=== PATIENT | male | born 1960 | race Two or more races ===

== ENCOUNTER 2020-05-06 21:17 | Inpatient (IN) | payer OTHER ==
[~2020-05-06] VITALS: Ht 182.9 cm; Wt 92.6 kg
[2020-05-06] MEDS ORDERED: PROP80CA51 PO (21:27)
[2020-05-06] MEDS ORDERED: DILTIAZEM HCL 25 MG IV ONE (21:28)
--- NOTE | 2020-05-06 21:29 | NUR ---
PATIENT CAME TO ER BED 9 BIB RA FROM HOME C/O RAPID HEART RATE. PATIENT STATES THAT HE HAS HAD A SIMILAR SITUATION A COUPLE YEARS AGO AND FELT THE SAME SENSATION TONIGHT. PATIENT DENIES ANY CHEST PAIN. PATIENT STATES THAT HE TOOK 2 PILLS OF SL NITROGLYCERIN TABLETS. PATIENT IS AAOX4. NO SOB. BREATHING EVENLY AND UNLABORED ON ROOM AIR. CONNECTED TO COMMERCIAL REAL ESTATE APPRAISER.
[2020-05-06] MEDS ORDERED: DILTIAZEM HCL 50 MG IV IV ONE ×2 (21:30→22:30)
--- NOTE | 2020-05-06 21:33 | NUR ---
BLOOD DRAWN AND IS COLLECTED BY [employer]ACLE HRMS CONSULTANT
[2020-05-06 21:34] LABS: BASOPHILS % (AUTO) 0.5 % (0.0-2.0); EOSINOPHILS % (AUTO) 5.1 % (0.0-6.0); HEMATOCRIT 42 % (39-51); HEMOGLOBIN 14.4 g/dL (13.5-17.5); LYMPHOCYTES # (AUTO) 3.3 /CMM (0.8-4.8); LYMPHOCYTES % (AUTO) 36.3 % (20.0-44.0); MEAN CORPUSCULAR HGB CONC 34 g/dl (31.0-36.0); MEAN CORPUSCULAR VOLUME 90 fL (80-96); MONOCYTES # (AUTO) 0.7 /CMM (0.1-1.30); MONOCYTES % (AUTO) 8.1 % (2.0-12.0); NEUTROPHILS # (AUTO) 4.5 /CMM (1.8-8.9); PLATELET COUNT (AUTO) 214 /CMM (150-450); RED BLOOD CELL COUNT(AUTO) 4.71 MIL/uL (4.5-6.0)
[2020-05-06 21:47] LABS: ALANINE AMINOTRANSFERASE 25 U/L (12-78); ALBUMIN 3.9 g/dL (3.4-5.0); ALKALINE PHOSPHATASE 83 U/L (46-116); ASPARTATE AMINOTRANSFERASE 15 U/L (15-37); BILIRUBIN,DIRECT 0.1 mg/dL (0.0-0.2); BILIRUBIN,TOTAL 0.3 mg/dL (0.2-1.0); CALCIUM, SERUM 9.1 mg/dL (8.5-10.1); CARBON DIOXIDE 29 mmol/L (21-32); CHLORIDE 104 mmol/L (98-107); CREATININE 1.4 mg/dL (0.6-1.3); GLUCOSE 150 mg/dL (74-106); POTASSIUM 3.7 mmol/L (3.5-5.1); SODIUM SERUM 141 mmol/L (136-145); TOTAL PROTEIN, SERUM 7.5 g/dL (6.4-8.2); UREA NITROGEN, BLOOD 32 mg/dL (7-18)
[2020-05-06] MEDS ORDERED: DILTIAZEM HCL 50 MG IV ONE (22:15)
[2020-05-06] MEDS ORDERED: ASPIRIN 81 MG TAB.CHEW PO ONE (23:00)
[2020-05-06] MEDS ORDERED: ASPIRIN 81 MG TAB.CHEW ONE (23:09)
--- NOTE | 2020-05-06 23:28 | NUR ---
DNP AT BEDSIDE
[2020-05-06 23:30] VITALS: BP 112/65
[2020-05-06] MEDS ORDERED: ONDANSETRON HCL/PF 4 MG/2 ML VIAL IVP PRN (23:30)
[2020-05-06] MEDS ORDERED: HYDROCODONE/APAP 5/325MG 1 EACH TABLET PO PRN (23:30)
[2020-05-06] MEDS ORDERED: MORPHINE SULFATE INJ 2 MG/ML DISP.SYRIN IV PRN (23:30)
[2020-05-06] MEDS ORDERED: ACETAMINOPHEN 325 MG TABLET PO PRN (23:30)
[2020-05-06] MEDS ORDERED: MAGNESIUM HYDROXIDE 30 ML UDC PO PRN (23:30)
[2020-05-06] MEDS ORDERED: MAG HYDROX/AL HYDROX/SIMETH 30 ML UDC PO PRN (23:30)
[2020-05-06] MEDS ORDERED: TEMAZEPAM 15 MG CAPSULE PO PRN (23:30)
--- NOTE | 2020-05-06 23:39 | NUR ---
REPORT GIVEN TO LAKHWINDER SHELBY FOR IVETTE.
--- NOTE | 2020-05-06 23:58 | NUR ---
PATIENT TAKEN UP TO ASSIGNED ROOM.
--- NOTE | 2020-05-06 23:58 | NUR ---
rn notes: maria c mayo hospitalist currently in the unit, per md verbal order to notify him if pt's afib hr persist to 130-40's, pt may need to be started on drip. order read back verified and carried out. coordinate with alarm security or surveillance monitor airto, to observe heart rhythm, and notify rn or charge.
--- NOTE | 2020-05-07 00:30 | NUR ---
rn notes: received call from [facility] hospitalist cesia barber at 0010, relayed about pt's hr now 150's. per md he will start pt on amiodarone drip, informed hospitalist we can't do drip on the floor per policy, pt need to be transfer to [facility] or [facility] per, however [facility] is only for covid positive patient. per hospitalist, pt is stable, transfer on [facility] status, but needs amiodrip for uncontrolled afib. notified rn new haddad, domo haddad will be sending [facility] rn to the unit to take over/assume care for the [facility] patient, and will send one [facility] rn to [facility].
[2020-05-07] MEDS ORDERED: AMIODARONE 150 MG in IV D5W 100 ML IV ONE (01:00)
[2020-05-07] MEDS ORDERED: AMIODARONE 900 MG in IV D5W 482 ML IV PRN (01:00)
[2020-05-07] MEDS ORDERED: AMIODARONE 150 MG/3 ML VIAL IV ONE ×2 (01:42→01:43)
--- NOTE | 2020-05-07 01:50 | NUR ---
rRN NOTES, RECEIVED PATIENT FROM HERON KEANE . PATIENT IN BED AT THIS TIME, A/O ABLE TO VERBALIZED NEEDS AND CONCERNS, PATIENT WILL BE STARTING IN AMIODARONE DRIP, WITH AFIB UNCONTROLLED IN TELE MONITOR, FLUCTUATING FROM 130S-150S AT THIS TIME, WILL CONTINUE TO MONITOR CLOSELY.
--- NOTE | 2020-05-07 02:10 | NUR ---
RN NOTES, AMIODARONE BOLUS AT THIS TIME, PATIENT TOLERATED WELL, WILL CONTINUE TO MONITOR CLOSELY.
--- NOTE | 2020-05-07 02:30 | NUR ---
RN NOTES, STARTED AMIODARONE DRIP AT THIS TIME, BOLUS ALREADY INFUSED AND WILL CONTINUE DRIP 1MG/MIN X 6 HRS, FOLLOW BY 0.5MGX 18 HRS FOR A TOTAL OF 24HRS INFUSION, PATIENT UNDER CLOSELY MONITORING, PATIENT TOLERATED WELL.
[2020-05-07 04:00] VITALS: BP_SYST 116; BP_SYST 118; BP_DIAS 60; BP_DIAS 81
[2020-05-07 06:58] LABS: BASOPHILS # (AUTO) 0.1 /CMM (0.0-0.2); BASOPHILS % (AUTO) 0.6 % (0.0-2.0); EOSINOPHILS % (AUTO) 3.8 % (0.0-6.0); HEMATOCRIT 43 % (39-51); HEMOGLOBIN 14.7 g/dL (13.5-17.5); LYMPHOCYTES # (AUTO) 2.1 /CMM (0.8-4.8); LYMPHOCYTES % (AUTO) 21.9 % (20.0-44.0); MEAN CORPUSCULAR HGB CONC 34 g/dl (31.0-36.0); MEAN CORPUSCULAR VOLUME 89 fL (80-96); MONOCYTES # (AUTO) 0.8 /CMM (0.1-1.30); MONOCYTES % (AUTO) 8.6 % (2.0-12.0); NEUTROPHILS # (AUTO) 6.4 /CMM (1.8-8.9); NEUTROPHILS % (AUTO) 65.1 % (43.0-81.0); PLATELET COUNT (AUTO) 202 /CMM (150-450); RED BLOOD CELL COUNT(AUTO) 4.85 MIL/uL (4.5-6.0); WHITE BLOOD COUNT (AUTO) 9.7 K/uL (4.3-11.0)
--- NOTE | 2020-05-07 07:00 | NUR ---
RN CLOSING NOTES, PATIENT CONTINUE ON AMIODARONE DRIP AT THIS TIME, 1MG/MIN 33.3ML X 6 HRS ONGOING AT THIS TIME, WILL BE DONE AROUND 0830, AND WILL CONTINUE WITH 0.5 MG/MIN 16.6 ML X 18HRS FOR THE REST OF THE THERAPY, PATIENT TOLERATED WELL, CONTINUE AFIB UNCONTROLLED AT THIS ITME.WITH HR FLUCTUATING 120S-130S MOSTLY SINCE STARTED THERAPY, NO SOB/ACUTE DISTRESS NOTED, NO C/O ANY DISCOMFORT, WILL ENDORSE CONTINUITY OF CARE TO ONCOMING NURSE.
[2020-05-07 07:40] LABS: THYROID STIMULATING HORMONE 1.495 uIU/mL (0.358-3.74)
--- NOTE | 2020-05-07 07:45 | NUR ---
RN MED-SURG OPENING NOTE RECEIVED PT IN BED AWAKE, ALERT AND ORIENTED x4. PT IS FINNISH SPEAKING WITH VERY LIMITED PASHTO. PT IS ON ROOM AIR AND SATURATING AT 100% AT THIS TIME. PT IS NOT TELE MONITORING WITH SINUS TACHYCARDIA HR 126 AT THIS TIME. PT'S SKIN IS INTACT AND ABLE TO AMBULATE BY HIMSELF WITH MINIMAL ASSISTANCE. PT IS ON A CARDIAC DIET. PT IS ON AMINO DRIP 16.6ML AT THIS TIME. PT'S RIGHT AC 18' IS INTACT, PATENT AND FLUSHED WELL. PT IS FULL CODE WITH NO ACUTE DISTRESS OR SOB NOTED AT THIS TIME. PT'S IN STABLE CONDITION AT THIS TIME. CALL LIGHT WITHIN REACH AND FUNCTIONING. BED LOCKED AND IN LOWEST POSITION. WILL CONTINUE TO MONITOR AND ASSESS PT.
[2020-05-07 08:00] VITALS: BP 123/80
[2020-05-07] MEDS ORDERED: LACOSAMIDE ORAL SOLN 50 MG/5 ML UDC ONE ×2 (08:01→08:57)
[2020-05-07 08:16] LABS: POTASSIUM 3.8 mmol/L (3.5-5.1)
[2020-05-07 08:17] LABS: CALCIUM, SERUM 9.1 mg/dL (8.5-10.1); CREATININE 1.1 mg/dL (0.6-1.3); MAGNESIUM 2.1 mg/dL (1.8-2.4); PHOSPHORUS 2.7 mg/dL (2.5-4.9)
[2020-05-07] MEDS ORDERED: FUROSEMIDE 20 MG/2 ML VIAL IV ONE (08:30)
[2020-05-07] MEDS: PROPRANOLOL HCL 10 MG TABLET PO SCH ×2 (08:45→17:34)
[2020-05-07] MEDS: ASPIRIN 81 MG TAB.CHEW PO SCH (08:53)
[2020-05-07] MEDS: PANTOPRAZOLE 40 MG TABLET.DR PO SCH (08:54)
[2020-05-07] MEDS ORDERED: POTASSIUM CHLORIDE 20 MEQ TAB.PRT.SR PO ONE (09:00)
--- NOTE | 2020-05-07 12:47 | NUR ---
RN MED-SURG NOTE PT IS CURRENTLY IN BED AWAKE, ALERT AND ORIENTED X4. PT IS IN STABLE CONDITION AT THIS TIME WITH NO ACUTE DISTRESS OR SOB NOTED. ALL NEEDS MET WITH HELP OF CLOTH PRINTER. CALL LIGHT WITHIN REACH AND FUNCTIONING. BED LOCKED AND IN LOWEST POSITION. WILL CONTINUE TO MONITOR AND ASSESS PT.
[2020-05-07] MEDS ORDERED: AMIODARONE 450 MG in IV D5W 250 ML IV PRN (14:30)
[2020-05-07 16:00] VITALS: BP_SYST 114; BP_SYST 91; BP_DIAS 58; BP_DIAS 78
--- NOTE | 2020-05-07 18:28 | NUR ---
RN MED-SURG CLOSING NOTE PT IS CURRENTLY IN BED AWAKE, ALERT AND ORIENTED x4. PT IS ON TELE MONITORING WITH JUNCTIONAL TACHYCARDIA NOTED HR 125 AT THIS TIME. PT CONTINUED ON AMINO DRIP @ 16.667/HR. PT IS TOLERATING DRIP WELL AT THIS TIME. NO ACUTE DISTRESS OR SOB NOTED. PT IS ON ROOM AIR SATURATING AT 99% AT THIS TIME. PT SPEAKS CYPRIOT WITH LIMITED GERMAN. SPOKE TO PT'S DAUGHTER TWICE TODAY RELYING TO HER THE PT'S STATUS AND CONDITION. DAUGHTER VERBALIZED UNDERSTANDING OF TREATMENT AND PLAN OF CARE. PT IS IN STABLE CONDITION AT THIS TIME. ALL NEEDS MET WITH HELP OF GORE SEAMER. CALL LIGHT WITHIN REACH AND FUNCTIONING, BED LOCKED AND IN LOWEST POSITION. WILL ENDORSE TO NEXT SHIFT NURSE TO IVETTE.
--- NOTE | 2020-05-07 19:30 | NUR ---
RN OPENING NOTES, PATIENT IN BED AWAKE, ALERT AND ORIENTED x4, DENIES ANY PAIN OR DISCOMFORT, BREATHING EVEN AND UNLABORED, NO SOB/ACUTE DISTRESS NOTED AT THIS TIME AT ROOM AIR, WITH OPTIMAL O2 SAT LEVEL, JUNCTIONAL TACHYCARDIA NOTED ON TELE MONITORING WITH HR 130S AT THIS TIME, CONT ON AMINO DRIP @ 16.667/HR, AND PATIENT TOLERATING WELL AT THIS TIME, ALL NEEDS MET CALL LIGHT WITHIN REACH, BED LOCKED AND IN LOWEST POSITION, WILL CONTINUE TO MONITOR CLOSELY.
[2020-05-07 20:00] VITALS: BP 116/80
--- NOTE | 2020-05-07 20:32 | NUR ---
RN NOTES, INFORMED NAILA HICKS DIGITAL MEDIA DESIGNER THAT PATIENT CONVERTED FROM AFIB UNCONTROLLED TO JUNCTIONAL TACHYCARDIA PER REPORT, AND APNS WITH HR IN 103S AT THIS TIME, AND THAT PATIENT CONTINUE ON AFIB AMIO DRIP TILL 239 LATER, AND IF IS THERE ANY ADDITIONAL ORDER, HE REPLIED WITH NEW ORDER FOR STAT BMP AND MAGNESIUM, NOTED AND CARRIED OUT.
[2020-05-07 21:05] LABS: CALCIUM, SERUM 9.3 mg/dL (8.5-10.1); CREATININE 1.2 mg/dL (0.6-1.3); MAGNESIUM 2.2 mg/dL (1.8-2.4); POTASSIUM 3.6 mmol/L (3.5-5.1)
--- NOTE | 2020-05-07 21:29 | NUR ---
RN NOTES, NOTED PATIENT RHYTHM CONVERTED FROM JUNCTIONAL TACHYCARDIA TO NORMAL SINUS RHYTHM WITH HR IN THE 70S AT THIS ITME, PATIENT A/O NO DISCOMFORT NOTED, WILL CONTINUE TO MONITOR CLOSELY.
--- NOTE | 2020-05-07 22:00 | NUR ---
RN NOTES, NAILA HICKS AWARE THAT PATIENT CONVERTED TO NSR AND HR IN 60S, NNO.
--- NOTE | 2020-05-07 22:00 | NUR ---
RN NOTES, PATIENT CONTINUE ON WITH NSR AT THIS TIME WITH HR IN LOW TO HIGH 60S AT THIS TIME WILL CONTINUE TO MONITOR CLOSELY, AMIO DRIP INFUSING, WILL CONTINUE AND MONITOR HR AND FOLLOW UP PROTOCOL REGARDING MEDICATION AND HR.
[2020-05-08] VITALS: BP 104/62
--- NOTE | 2020-05-08 02:30 | NUR ---
RN NOTES, DONE WITH THE ADMINISTRATION OF 24HRS AMIODARONE DRIP AT THIS TIME, PATIENT TOLERATED WELL, NO C/O PAIN OR ANY DISCOMFORT, WITH 118/60 AND HR 61 AT THIS TIME, WILL CONTINUE TO MONITOR CLOSELY.
[2020-05-08 04:00] VITALS: BP 101/70
--- NOTE | 2020-05-08 06:44 | NUR ---
RN CLOSING NOTES, PATIENT IN BED SLEEPING AT THIS TIME, DENIES ANY PAIN OR DISCOMFORT, BREATHING EVEN AND UNLABORED, NO SOB/ACUTE DISTRESS NOTED AT THIS TIME AT ROOM AIR, WITH OPTIMAL O2 SAT LEVEL, CONTINUE NSR ON TELE MONITORING WITH HR 60S S AT THIS TIME, S/P AMIODARONE DRIP, ALL NEEDS MET, CALL LIGHT WITHIN REACH, BED LOCKED AND IN LOWEST POSITION, OTHERWISE PATIENT FELLING BETTER, WITH RHYTHM CONVERTED TO NSR SINCE LAST NIGHT AT 2128, WILL CONTINUE ENDORSE CONTINUITY OF CARE TO ONCOMING NURSE.
--- NOTE | 2020-05-08 07:30 | NUR ---
MS RN NOTES PATIENT IN BED A/OX4 AWAKE, NO ISOLATION RIGHT SITE IV PATENT FLUSHED WELL. NO SOB OR DISCOMFORT NOTED AT THIS TIME. HR 74 SR. WILL CONTINUE TO MONITOR THE PATIENT.
[2020-05-08 08:00] VITALS: BP 117/82
[2020-05-08] MEDS: PANTOPRAZOLE 40 MG TABLET.DR PO SCH (08:05)
[2020-05-08] MEDS: ASPIRIN 81 MG TAB.CHEW PO SCH (08:23)
[2020-05-08] MEDS: PROPRANOLOL HCL 10 MG TABLET PO SCH (08:25)
[2020-05-08] MEDS ORDERED: AMIODARONE HCL 200 MG TABLET PO SCH (09:00)
[2020-05-08] MEDS ORDERED: APIXABAN 5 MG TABLET PO SCH (09:30)
[2020-05-08 09:53] VITALS: BP 117/82
--- NOTE | 2020-05-08 11:15 | NUR ---
ELECTRIC SEALING MACHINE OPERATOR NOTE PATIENT A/OX4 AMBULATORY, NO SOB OR DISCOMFORT NOTED. BELONGINGS AND MEDS RETURNED TO PATIENT AND SIGNED. REFUSED VACCINE. IV REMOVED , ID BAND REMOVED. PATIENT LEFT HOSPITAL VIA PRIVET CAR (DAUGHTER). NO TELE MONITOR NOTED ON PATIENT.
== END 2020-05-08 11:25 | disposition home or self-care (01) | DRG 201 ==
LOC: ER 21:18 → TELE 23:33 → MED 05-08 08:49
PROVIDERS: ADMIT Nurse Practitioner Acute Care; ATTEND Internal Medicine
DX: I48.91 Unspecified atrial fibrillation (principal); N17.0 Acute kidney failure with tubular necrosis; Z79.899 Other long term (current) drug therapy; Z91.14 Patient's other noncompliance with medication regimen; I50.32 Chronic diastolic (congestive) heart failure; I20.9 Angina pectoris, unspecified; I49.9 Cardiac arrhythmia, unspecified; I21.A1 Myocardial infarction type 2; F41.9 Anxiety disorder, unspecified
CPT/HCPCS: 36415; 71045-TC; 80048-TC; 80061-TC; 80076-TC; 83735-TC; 84100-TC; 84443-TC; 84484-TC; 85025-TC; 85730-TC; 87081-TC; 93307-TC; G0378; J0282; J1940; J3490; J7060

== ENCOUNTER 2021-12-11 15:57 | Inpatient (IN) | payer OTHER ==
[~2021-12-11] VITALS: Ht 177.8 cm; Wt 98.4 kg
--- NOTE | 2021-12-11 16:18 | NUR ---
TO ER BED 2. BIB DAUGHTER C/O DIFFUSE ABDOMINAL PAIN SINCE YESTERDAY BIB DAUGHTER C/O DIFFUSE ABDOMINAL PAIN SINCE YESTERDAY. ATTACHED TO MONITOR.
[2021-12-11] MEDS ORDERED: PANTOPRAZOLE 40 MG VIAL ONE (16:38)
[2021-12-11] MEDS ORDERED: ONDANSETRON HCL/PF 4 MG/2 ML VIAL ONE (16:38)
[2021-12-11] MEDS ORDERED: MORPHINE SULFATE INJ 4 MG/ML DISP.SYRIN ONE (16:38)
[2021-12-11 17:00] LABS: BASOPHILS % (AUTO) 0.3 % (0.0-2.0); EOSINOPHILS % (AUTO) 0.5 % (0.0-6.0); HEMATOCRIT 43 % (39-51); LYMPHOCYTES # (AUTO) 1.2 K/uL (0.8-4.8); LYMPHOCYTES % (AUTO) 12.5 % (20.0-44.0); MEAN CORPUSCULAR HGB CONC 35 g/dl (31.0-36.0); MEAN CORPUSCULAR VOLUME 85 fL (80-96); MONOCYTES # (AUTO) 0.3 K/uL (0.1-1.30); MONOCYTES % (AUTO) 3.5 % (2.0-12.0); NEUTROPHILS # (AUTO) 8.1 K/uL (1.8-8.9); NEUTROPHILS % (AUTO) 83.2 % (43.0-81.0); PLATELET COUNT (AUTO) 196 K/uL (150-450); RED BLOOD CELL COUNT(AUTO) 5.05 MIL/uL (4.5-6.0); WHITE BLOOD COUNT (AUTO) 9.8 K/uL (4.3-11.0)
[2021-12-11] MEDS ORDERED: PANTOPRAZOLE 40 MG VIAL IV ONE (17:00)
[2021-12-11] MEDS ORDERED: IV NS 0.9% 1,000 ML BAG IV ONE (17:00)
[2021-12-11] MEDS ORDERED: MORPHINE SULFATE INJ 2 MG/ML DISP.SYRIN IV ONE (17:00)
[2021-12-11] MEDS ORDERED: ONDANSETRON HCL/PF 4 MG/2 ML VIAL IVP ONE (17:00)
--- NOTE | 2021-12-11 17:07 | NUR ---
PT TAKEN TO CT VIA [facility]
[2021-12-11 17:11] LABS: CALCIUM, SERUM 9.3 mg/dL (8.5-10.1); CREATININE 1.1 mg/dL (0.6-1.3); POTASSIUM 3.7 mmol/L (3.5-5.1)
--- NOTE | 2021-12-11 17:12 | NUR ---
PT BACK FROM CT VIA [facility]
[2021-12-11 17:17] LABS: ALBUMIN 4.1 g/dL (3.4-5.0); BILIRUBIN,DIRECT 0.1 mg/dL (0.0-0.2); BILIRUBIN,TOTAL 0.6 mg/dL (0.2-1.0); TOTAL PROTEIN, SERUM 7.9 g/dL (6.4-8.2)
--- NOTE | 2021-12-11 17:17 | NUR ---
PT UNABLE TO PROVIDE URINE AT THIS TIME
--- NOTE | 2021-12-11 17:58 | NUR ---
URINE COLLECTED AND SENT
[2021-12-11] MEDS ORDERED: ERGO500093 PO (18:09)
[2021-12-11] MEDS ORDERED: APIX5TAB PO (18:09)
[2021-12-11] MEDS ORDERED: PROP10TA68 PO (18:09)
[2021-12-11] MEDS ORDERED: ATOR10TA PO (18:10)
--- NOTE | 2021-12-11 18:37 | NUR ---
PT DAUGHTER LINDEN [phone]
--- NOTE | 2021-12-11 18:46 | NUR ---
CALLED SURGERY DR. ANDERSON [phone] LEFT .
--- NOTE | 2021-12-11 18:50 | NUR ---
MOVE SHEET SUBMITTED
--- NOTE | 2021-12-11 19:04 | NUR ---
DR. ANDERSON SPEAKING WITH DR. THURMAN.
[2021-12-11 19:12] LABS: BILIRUBIN,URINE NEGATIVE (NEGATIVE); COLOR,URINE YELLOW (YELLOW); LEUKOCYTE ESTERASE ,URINE NEGATIVE (NEGATIVE); NITRITE, URINE NEGATIVE (NEGATIVE); PROTEIN,URINE TRACE mg/dl (NEGATIVE); UGLUCOSE NEGATIVE (NEGATIVE); UROBILINOGEN,URINE 0.2 EU/dL (0.2)
[2021-12-11 19:39] LABS: BACTERIA,URINE None seen /HPF (None Seen); SQUAMOUS EPITHELIAL CELL,UR Few /HPF (None Seen); URINE AMORPHOUS PHOSPHATES Few /HPF (None Seen); WBC,URINE 0-2 /HPF (0-3)
--- NOTE | 2021-12-11 21:11 | NUR ---
updated room 309-2
--- NOTE | 2021-12-11 21:15 | NUR ---
REPORT GIVEN TO TAY Pablo RN FOR IVETTE
--- NOTE | 2021-12-11 21:30 | NUR ---
PT GOING TO UNIT IN [facility] WITH EMT AND RN AT BEDSIDE W. ACLS PROTOCOL.
--- NOTE | 2021-12-11 21:30 | NUR ---
RN NOTES RECEIVED PATIENT FOR ER WITH DX. OF ABDOMINAL PAIN, A/OX4, PASHTO SPEAKING, DENIES PAIN, NO SOB, ADMISSION INSTRUCTION WAS EXPLAINED, TALKED TO HIS DAUGHTER REGARDING PATIENT MIDICAL HISTORY, CALL LIGHT WITHIN REACH, [id number], WILL CONTINUE TO MONITOR
[2021-12-11 21:31] VITALS: BP 153/81
[2021-12-11] MEDS ORDERED: HYDROCODONE/APAP 5/325MG TABLET PO PRN (22:00)
[2021-12-11] MEDS ORDERED: ONDANSETRON HCL/PF 4 MG/2 ML VIAL IVP PRN (22:00)
[2021-12-11] MEDS ORDERED: MAG HYDROX/AL HYDROX/SIMETH 30 ML UDC PO PRN (22:00)
[2021-12-11] MEDS ORDERED: ZOLPIDEM TARTRATE 5 MG TABLET PO PRN (22:00)
[2021-12-11] MEDS ORDERED: MAGNESIUM HYDROXIDE 30 ML UDC PO PRN (22:00)
[2021-12-11] MEDS ORDERED: IV D5/0.45 NACL 1,000 ML IV PRN (22:00)
[2021-12-11] MEDS ORDERED: Z GUARD REMEDY 4 OZ OINT TP PRN (22:00)
[2021-12-11] MEDS ORDERED: ACETAMINOPHEN 325 MG TABLET PO PRN (22:00)
[2021-12-11] MEDS ORDERED: MORPHINE SULFATE INJ 2 MG/ML DISP.SYRIN IV PRN (22:00)
--- NOTE | 2021-12-11 22:40 | NUR ---
RN NOTES PATIENT REFUSED HIS IV FLUID, EXPLAINED THE IMPORTANCE OF HIS IV FLUID, BUT PATIENT STILL REFUSING
[2021-12-12 06:43] LABS: BASOPHILS % (AUTO) 0.4 % (0.0-2.0); EOSINOPHILS % (AUTO) 2.8 % (0.0-6.0); HEMATOCRIT 40 % (39-51); HEMOGLOBIN 13.7 g/dL (13.5-17.5); LYMPHOCYTES # (AUTO) 2.3 K/uL (0.8-4.8); LYMPHOCYTES % (AUTO) 23.5 % (20.0-44.0); MEAN CORPUSCULAR HGB CONC 34 g/dl (31.0-36.0); MEAN CORPUSCULAR VOLUME 87 fL (80-96); MONOCYTES # (AUTO) 0.7 K/uL (0.1-1.30); MONOCYTES % (AUTO) 7.1 % (2.0-12.0); NEUTROPHILS # (AUTO) 6.5 K/uL (1.8-8.9); NEUTROPHILS % (AUTO) 66.2 % (43.0-81.0); PLATELET COUNT (AUTO) 168 K/uL (150-450); RED BLOOD CELL COUNT(AUTO) 4.61 MIL/uL (4.5-6.0); WHITE BLOOD COUNT (AUTO) 9.8 K/uL (4.3-11.0)
--- NOTE | 2021-12-12 06:46 | NUR ---
RN NOTES AWAKE, MORNING CARE RENDERED, CALL LIGHT WITHIN REACH, [id number], PT DENIES PAIN. NEEDS ATTENDED
[2021-12-12 07:07] LABS: CALCIUM, SERUM 8.4 mg/dL (8.5-10.1); CREATININE 1.1 mg/dL (0.6-1.3); MAGNESIUM 1.9 mg/dL (1.8-2.4); POTASSIUM 3.7 mmol/L (3.5-5.1)
--- NOTE | 2021-12-12 07:30 | NUR ---
MS RN OPENING NOTES RECEIVED PATIENT ON BED AWAKE AND A/O X4. ON ROOM AIR TOLERATING WELL. NO SOB NOTED. NOT IN DISTRESS. WITH NO COMPLAINTS OR DISCOMFORT AT THIS TIME. WITH IV ACCESS AT LEFT FOREARM G20 WITH IVF D5 1/2NS AT 125ML/HR INFUSING WELL. IV SITE IS INTACT AND PATENT. ON NPO AWAITING FOR SMALL BOWEL FOLLOW-THROUGH. SAFETY MEASURES IN PLACED. CALL LIGHT WITHIN REACH. BED ON LOWEST LOCKED POSITION, SIDE RAILS UP X2. WILL CONTINUE TO MONITOR.
[2021-12-12 08:00] VITALS: BP 133/72
[2021-12-12] MEDS ORDERED: PANTOPRAZOLE 40 MG VIAL IV SCH (09:00)
[2021-12-12] MEDS ORDERED: DIATR MEGLU/DIATRIZOATE SODIUM 120 ML BOTTLE (GASTROGRAPHIN) ONE (10:00)
--- NOTE | 2021-12-12 16:52 | NUR ---
MS TOWER CRANE OPERATOR NOTES PATIENT WAS SEEN BY DR. YOUSIF. PATIENT'S RESULT OF SMALL BOWEL FOLLOW-THROUGH WAS NEGATIVE. PATIENT IS FOR DISCHARGE PER DOCTOR'S ORDER TO HOME. DISCHARGE INSTRUCTION AND EDUCATION PROVIDED TO PATIENT AND EXPLAINED MEDICATIONS AND PRESCRIPTIONS. PATIENT VERBALIZED UNDERSTANDING. DISCHARGE FORM AND BELONGINGS LIST FORM SIGNED BY PATIENT. ALL BELONGINGS ACCOUNTED FOR. NAME WRIST BAND AND IV LINE REMOVED. ACCOMPANIED PATIENT TO THE LOBBY WITH DAUGHTER MICA AND LEFT IN STABLE CONDITION VIA PRIVATE CAR. MD AND CHARGE NURSE ARE AWARE OF THE DISCHARGE.
== END 2021-12-12 17:09 | disposition home or self-care (01) | DRG 247 ==
LOC: ER 15:58 → MED 20:36
PROVIDERS: ADMIT Student in an Organized Health Care Education/Training Program; ATTEND Family Medicine
DX: K56.7 Ileus, unspecified (principal); E78.5 Hyperlipidemia, unspecified; E86.0 Dehydration; I48.91 Unspecified atrial fibrillation; R16.1 Splenomegaly, not elsewhere classified; K56.609 Unspecified intestinal obstruction, unspecified as to partial versus complete obstruction; Z20.822 Contact with and (suspected) exposure to COVID-19
CPT/HCPCS: 36415; 71045-TC; 74250-TC; 80048-TC; 80076-TC; 81001; 83690-TC; 83735-TC; 84100-TC; 85025-TC; 87081-TC; C9113; C9803; G0378; J2270; J2405; J3490; J7030; Q9963